=== PATIENT | female | born 1980 | race Caucasian/White ===

== ENCOUNTER 2019-12-31 07:15 | Day surgery (SDC) | payer BC ==
[~2019-12-31 07:15] MED LIST: LIDOCAINE 2% 100MG/5ML SDV (FOR ANES.) As Ordered ONE; MIDAZOLAM INJ 2MG/2ML VIAL (J2250 PER 1MG) As Ordered ONE; ONDANSETRON 4MG/2ML VIAL As Ordered ONE; ceFAZolin 2 GM/D5W 50 ML IV BAG (J0690 PER 500MG) As Ordered ONE; dexameTHASONE 4 MG/ML 1ML VIAL (J1100 PER 1MG) As Ordered ONE; fentaNYL 100 MCG/2 ML INJECTION (J3010) As Ordered ONE; propofoL 200 MG/20 ML VIAL As Ordered ONE
[2019-12-31] MEDS ORDERED: ceFAZolin 2 GM/D5W 50 ML IV BAG (J0690 PER 500MG) ONE (07:16)
[2019-12-31] MEDS ORDERED: CONRAY-60 60% 50ML VIAL (Q9961) As Ordered ONE (07:55)
[2019-12-31] MEDS ORDERED: ACETAMINOPHEN 500 MG TAB ONE (10:25)
[2019-12-31] MEDS ORDERED: ACETAMINOPHEN 500 MG TAB As Ordered ONE (10:25)
--- NOTE | 2020-02-13 08:27 | REP ---
C-ARM VIEWS DURING RIGHT URETERAL STENT PLACEMENT TECHNIQUE: Three C-arm views abdomen and pelvis performed. FINDINGS: Right ureter is catheterized. Contrast partially opacifies a moderately dilated right pelvicalyceal system. A right ureteral stent is visualized on the final image with the proximal end coiled in the right renal pelvis and the distal end coiled in the region of the urinary bladder. IUD is seen in the pelvis. There were 27 seconds of fluoroscopy time utilized. MTDD
--- NOTE | 2020-02-26 13:21 | RO ---
DATE OF OPERATION: December 31, 2019 PRE-PROCEDURE DIAGNOSIS: Right ureteropelvic junction obstruction. POST-PROCEDURE DIAGNOSIS: Right ureteropelvic junction obstruction. PROCEDURES: * Cystoscopy. * Right ureteroscopy with balloon dilation. * Right retrograde pyelogram with intraoperative interpretation of images. * Right ureteral stent placement. SURGEON: Pravin Miranda MD. TERMINAL OPERATIONS SUPERVISOR: None. ANESTHESIA: General. 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 On recent imaging, she was shown to still have [id number] right hydronephrosis, as well as a declining function of her right kidney. She was brought to the operating room today to potentially treat the ureteropelvic junction obstruction with balloon dilation and place a stent. DESCRIPTION OF PROCEDURE: The patient was brought to the operating room and general anesthesia was induced. Prophylactic antibiotics were infused. She was then placed in the dorsal lithotomy position, prepped, and draped in the usual sterile fashion. A rigid cystoscope was inserted into the urethral meatus and advanced to the bladder. A guidewire was then advanced up to the right collecting system. A ureteral access sheath was advanced to the right collecting system. I went up the access sheath with the flexible ureteroscope. At the level of the right ureteropelvic junction, of note, it appeared to be just mildly narrow, if any. The kidney did appear to be dilated. A retrograde pyelogram was performed and notable for [id number] right hydronephrosis down to the level of the ureteropelvic junction. There was no extravasation. I then withdrew the ureteroscope and the access sheath and then advanced a balloon dilator over the wire. The balloon was then inflated to 15-[place] at the level of the ureteropelvic junction and the balloon was kept inflated for about 1 minute. It was then deflated and inflated again a little bit more distally. Once again, it was left up for about a minute. Once that was done, the balloon dilator was removed and the access sheath was advanced back up the wire. I went up the access sheath with a flexible ureteroscope. Of note, the ureteropelvic junction if anything, appeared a little bit more open, but not significant. This indicates that the patient's ureteropelvic junction was not that narrow and after the previous surgery worked pretty well. It just looked like she has chronic hydronephrosis from years of obstruction of that kidney. At this point, the ureteroscope was removed along with the access sheath. The wire was then utilized to advance a 7-[place] x 22-32 cm JJ ureteral stent up the right collecting system. The wire was removed and there was adequate curl of the stent in the right renal pelvis and bladder. The bladder was then emptied of all fluids. This marked the conclusion of the procedure. The patient was taken out of the dorsal lithotomy position, awakened from anesthesia, and transferred to the recovery room in stable condition. ESTIMATED BLOOD LOSS: 5 mL. COMPLICATIONS: None. SPECIMEN: None. PLAN: The patient will follow up in the clinic in approximately two weeks for stent removal. PASQUALE
== END 2019-12-31 11:20 | disposition home or self-care (01) ==
LOC: M SDC 07:15
PROVIDERS: ATTEND Urology
DX: N20.1 Calculus of ureter (principal); Z88.1 Allergy status to other antibiotic agents; Z79.899 Other long term (current) drug therapy; Z87.891 Personal history of nicotine dependence
CPT/HCPCS: 52332; 52342; 74420; C1769; C1894; C2617; J0690; J1100; J2250; J2405; J3010; Q9961